=== PATIENT | female | born 1950 | race Caucasian/White ===

== ENCOUNTER 2017-04-24 08:32 | Day surgery (SDC) | payer MEDICARE, OTHER ==
[~2017-04-24] VITALS: Ht 152.4 cm; Wt 122.5 kg
[~2017-04-24 08:32] MED LIST: ASPIRIN EC81 M1 PO; COREG25 MG PO; FISH OIL 1,0001 CA1 PO; FUROSEMIDE40 MG PO; GLUCOPHAGE500 MG PO; HYZAAR 100-25 T1 TAB PO; JANTOVEN7.5 MG PO; KLOR-CON M2020 MEQ PO; NEURONTIN 300300 MG PO; OMEGA 3 FISH OI1 CAP PO; OMEPRAZOLE20 M1 PO; PROPAFENONE HC225 MG PO; REQUIP0.25 MG PO; SYNTHROID150 MCG PO; ZOLOFT25 MG PO
[2017-04-24 10:30] LABS: HEMATOCRIT 38.8 % (36.0-48.0); HEMOGLOBIN 12.1 g/dL (12-16); MCH 28.7 pg (26.0-34.0); MCHC 31.2 g/dL (31.0-37.0); MCV 91.9 fL (80.0-100.0); MEAN PLATELET VOLUME 10.1 fL (7.4-10.4); RBC 4.22 10x6/uL (4.00-5.40); RDW 15.9 % (11.5-14.5); WBC 6.5 10x3/uL (4.8-10.8)
[2017-04-24 10:43] VITALS: BP 113/64; Ht 152.4 cm; Wt 122.5 kg
[2017-04-24 10:43] LABS: ANION GAP 8.7 mmol/L (8-16); CALCIUM 8.8 mg/dL (8.5-10.1); CARBON DIOXIDE 31.8 mmol/L (21.0-32.0); POTASSIUM - SERUM 3.5 mmol/L (3.5-5.1)
--- NOTE | 2017-04-24 13:51 | NUR ---
NO COUNTS R/T HIP INJECTION PROCEDURE
--- NOTE | 2017-04-27 14:01 | OP ---
PATIENT NAME: AUGUSTUS JOHNSON I MEDICAL RECORD: [id number] :54 [facility] AD[facility]ION DATE: SURGEON: KYUNG WIN MD DATE OF OPERATION: 04/24/2017 PREOPERATIVE DIAGNOSIS: Degenerative arthritis of the right hip. POSTOPERATIVE DIAGNOSIS: Degenerative arthritis of the right hip. PROCEDURE: Injection into the right hip under fluoroscopy. SURGEON: Kyung Win MD. ANESTHESIA: General. INTRAOPERATIVE COMPLICATIONS: None. OPERATIVE SUMMARY IN DETAIL: After obtaining the appropriate preoperative orthopedic surgery consent as well as anesthetic consultation, evaluation and clearance, the patient was brought to the operating room and placed on the operating table in supine position. After general TIVA anesthesia was administered, the patient's right hip area was prepped and draped in a routine sterile fashion. The needle was guided into the hip capsule under fluoroscopic guidance. A small amount of Isovue was utilized to determine that the hip was in the capsule. At this point, a 40 mg of Depo-Medrol with 7 cc of 0.25% Marcaine with epinephrine were injected into the hip capsule. The patient tolerated the procedure well. She was awakened and taken to outpatient in stable condition. TRANSINT:[id number] Voice Confirmation ID: [id number] DOCUMENT ID: [id number] KYUNG WIN MD at 1401 CC: [id number] DICTATION DATE: 04/24/17 1310 ANTENNA INSTALLER: 04/24/171927 [facility] [place] 04/24/17 [facility] [address] [place] [address]
== END 2017-04-24 15:48 | disposition home or self-care (01) ==
LOC: D.OPS 08:32 → D.PAN 11:30 → D.OPS 11:30 → D.PAN 13:15 → D.OPS 13:15 → D.PAN 13:45 → D.OPS 13:45
PROVIDERS: Anesthesiology
DX: M16.11 Unilateral primary osteoarthritis, right hip (principal); Z01.812 Encounter for preprocedural laboratory examination